=== PATIENT | male | born 1985 | race Caucasian/White ===

== ENCOUNTER 2017-04-02 08:26 | Emergency (ER) | payer MEDICAID ==
[~2017-04-02] VITALS: Ht 170.2 cm; Wt 83.5 kg
[2017-04-02 08:30] VITALS: Ht 170.2 cm; Wt 83.5 kg
[2017-04-02] MEDS ORDERED: FLUORESCEIN STRIP RIGHT EYE ONE (09:00)
[2017-04-02] MEDS ORDERED: TETRACAINE 0.5% 4 ML OPH RIGHT EYE ONE (09:00)
[2017-04-02] MEDS ORDERED: OPHTHALMIC IRRIG SOLUTION 120 ML RIGHT EYE ONE (09:30)
[2017-04-02] MEDS ORDERED: OFLO5DRO46 RIGHT EYE (10:06)
--- NOTE | 2017-04-02 10:16 | ERA ---
ER Documentation Chief Complaint Date/Time DATE: 04/02/17 TIME: 10:09 Chief Complaint RT EYE PAIN POSSIBLE FB HPI Patient is a 31-year-old male who presents to the emergency department with right eye pain and possible foreign body. Patient states yesterday he was cutting metal wires when 1 of the chips of the wire flew up and possibly hit his eye. Patient reports redness and irritation to his right eye. Patient also reports increased hearing. Patient reports that his current pain level is a 7 out of 10. Patient did rinse out his eye using water. Patient denies any contact use her vision correction lens. Patient states he did have blurry vision yesterday however his vision is now normal today. Patient denies any fevers, chills, nausea, vomiting, loss consciousness. Patient states that he has not seen his insurance plan specialist yet. Patient states he last received his tetanus vaccination 3 years ago. ROS All systems reviewed and are negative except as per history of present illness. Medications Home Meds Active Scripts Ofloxacin* (Ocuflox*) 0.3%-5 Ml Ophth Drops, 1 DROP RIGHT EYE QID for 7 Days, # 1 BOTTLE Prov:DARIA DIANA PA-C 04/02/17 Allergies Allergies: Coded Allergies: No Known Allergy (Unverified , 04/02/17) PMhx/Soc Medical and Surgical Hx: pt denies Medical Hx, pt denies Surgical Hx History of Surgery: No Anesthesia Reaction: No Hx Neurological Disorder: No Hx Respiratory Disorders: No Hx Cardiac Disorders: No Hx Psychiatric Problems: No Hx Miscellaneous Medical Probl: No Hx Alcohol Use: No Hx Substance Use: No Hx Tobacco Use: No Smoking Status: Never smoker FmHx Family History: No diabetes Physical Exam Vitals Vital Signs Date Time Temp Pulse Resp B/P Pulse Ox O2 Delivery O2 Flow Rate FiO2 04/02/17 08:30 97.1 68 19 134/76 97 Physical Exam GENERAL: Well-developed, well-nourished male. Appears in no acute distress. HEAD: Normocephalic, atraumatic. No deformities or ecchymosis. EYE: Visual acuity w/ Snellen eye chart: OD: 20/30, OS: 20/30, OU: 20/15 Normal eye alignment. No orbital swelling or erythema. No proptosis. Pupils equal, round, and reactive to light. EOMs intact. +Conjunctival injection of R eye. +Clear eye discharge. Anterior chamber clear. No hyphema or hypopion. Wood's lamp exam: + Corneal abrasions noted in medial aspect of conjunctiva. No foreign bodies, ulcerations visualized with fluorescein dye. ENT: Moist mucous membranes. No uvula deviation. No kissing tonsils. NECK: Supple. No meningismus. Normal ROM of the neck. LUNG: Clear to auscultation bilaterally. No rhonchi, wheezing, rales or coarse breath sounds. HEART: Regular rate and rhythm. No murmurs, rubs or gallops. BACK: No midline tenderness. EXTREMITIES: Equal pulses bilaterally. No peripheral clubbing, cyanosis or edema. No unilateral leg swelling. NEUROLOGIC: Alert and oriented to person, place and time. Moving all four extremities. 5/5 strength in all extremities. Normal speech. Steady gait. SKIN: Normal color. Warm and dry. No rashes or lesions. Results 24 hrs Current Medications Medications (Trade) Dose Ordered Sig/Gildardo Route PRN Reason Start Time Stop Time Status Last Admin Dose Admin Fluorescein Sodium (Splfq-E-Hrubk) 1 strip ONCE ONCE RIGHT EYE 04/02/17 09:00 04/02/17 09:01 DC 04/02/17 09:18 Tetracaine HCl (Tetracaine 0.5% Steri-Unit Marylu) 1 drop ONCE ONCE RIGHT EYE 04/02/17 09:00 04/02/17 09:01 DC 04/02/17 09:18 Irrigating Solution (Eye Wash) 1 applic ONCE ONCE RIGHT EYE 04/02/17 09:30 04/02/17 09:31 DC Procedures/MDM MEDICAL DECISION MAKING: This is a 31-year-old male who presents with right eye pain and concerns of a foreign body. Vital signs were reviewed. Patient was afebrile. Eye exam revealed possible corneal abrasions to the medial aspect of the right conjunctiva. Patient's eye was rinsed out using eyewash solution. Patient's vision was grossly intact. Tetanus vaccination was up-to-date. Given these findings, the patient's presentation is most consistent with corneal abrasion. I have a much lower clinical concern for bacterial conjunctivitis, viral conjunctivitis, allergic conjunctivitis,corneal ulcer, retained eye foreign body , glaucoma, periorbital cellulitis, orbital cellulitis, hordeolum, dacrocystitis. PRESCRIPTIONS: Ocuflox. DISCHARGE: At this time, patient is stable for discharge and outpatient management. Supportive measures were discussed with patient including warm/cool compresses. Patient advised not to wear contact lenses or eye makeup. I have instructed the patient to follow-up with his/her primary care physician in 1-2 days. Patient advised to follow up with insurance plan specialist in the next 1-2 days, referral information provided. I have instructed the patient to promptly return to the ER for any new or worsening symptoms including increased pain, fever, swelling, redness, warmth, nausea, vomiting, . The patient and/or family expressed understanding of and agreement with this plan. All questions were answered. Home care instructions were provided. Departure Diagnosis: Primary Impression: Corneal abrasion Qualified Code: S05.01XA - Corneal abrasion, right, initial encounter Condition: Stable Patient Instructions: Corneal Abrasion Referrals: [facility] YOU HAVE RECEIVED A MEDICAL SCREENING EXAM AND THE RESULTS INDICATE THAT YOU DO NOT HAVE A CONDITION THAT REQUIRES URGENT TREATMENT IN THE EMERGENCY DEPARTMENT. FURTHER EVALUATION AND TREATMENT OF YOUR CONDITION CAN WAIT UNTIL YOU ARE SEEN IN YOUR DOCTORS OFFICE WITHIN THE NEXT 1-2 DAYS. IT IS YOUR RESPONSIBILITY TO MAKE AN APPOINTMENT FOR [facility]- CARE. IF YOU HAVE A PRIMARY DOCTOR --you should call your primary doctor and schedule an appointment IF YOU DO NOT HAVE A PRIMARY DOCTOR YOU CAN CALL OUR PHYSICIAN REFERRAL HOTLINE AT IF YOU CAN NOT AFFORD TO SEE A PHYSICIAN YOU CAN CHOSE FROM THE FOLLOWING [facility] [address] [facility]. [facility] [address] [facility]. [facility] [address] [facility]. [facility] [address] [facility]. [facility] [address] [facility]. [facility]. [address] [facility]. [facility] YOU HAVE RECEIVED A MEDICAL SCREENING EXAM AND THE RESULTS INDICATE THAT YOU DO NOT HAVE A CONDITION THAT REQUIRES URGENT TREATMENT IN THE EMERGENCY DEPARTMENT. FURTHER EVALUATION AND TREATMENT OF YOUR CONDITION CAN WAIT UNTIL YOU ARE SEEN IN YOUR DOCTORS OFFICE WITHIN THE NEXT 1-2 DAYS. IT IS YOUR RESPONSIBILITY TO MAKE AN APPOINTMENT FOR [facility]OLOW-UP CARE. IF YOU HAVE A PRIMARY DOCTOR --you should call your primary doctor and schedule and appointment IF YOU DO NOT HAVE A PRIMARY DOCTOR YOU CAN CALL OUR PHYSICIAN REFERRAL HOTLINE AT . IF YOU CAN NOT AFFORD TO SEE A PHYSICIAN YOU CAN CHOSE FROM THE FOLLOWING [facility]: [facility] [address] [place] [address] [facility] [address] [place] [address] [facility] [address] [place] [address] [facility] Hours: Mon - Fri 9:00 AM - 5:00 PM Additional Instructions: Call your primary care doctor TOMORROW for an appointment during the next 1-2 days.See the doctor sooner or return here if your condition worsens before your appointment time. Follow up with your [facility] in the next 1-2 days. See referral list. DARIA DIANA PA-C April 02, 2017 10:16
[2017-04-02 10:17] VITALS: BP 128/81; PULSE 77; RESP 18
== END 2017-04-02 10:54 | disposition home or self-care (01) ==
LOC: FTE 08:26
DX: S05.01XA Injury of conjunctiva and corneal abrasion without foreign body, right eye, initial encounter (principal); W22.8XXA Striking against or struck by other objects, initial encounter; Y92.9 Unspecified place or not applicable
CPT/HCPCS: Z7502; Z7610; 99283